=== PATIENT | female | born 1980 | race African-American/Black ===

== ENCOUNTER 2023-11-08 17:24 | Emergency (ER) | payer BC, MEDICAID ==
[~2023-11-08] VITALS: Ht 167.6 cm; Wt 100.0 kg
[2023-11-08 17:31] VITALS: BP 135/77; PULSE 81; RESP 18; TEMP 98.1; O2SAT 95
[2023-11-08] MEDS ORDERED: CEPH500C2 MT (18:17)
== END 2023-11-08 18:30 | disposition home or self-care (01) ==
LOC: ER 17:24
DX: L02.211 Cutaneous abscess of abdominal wall (principal)
CPT/HCPCS: 99283

== ENCOUNTER 2024-01-18 08:31 | Emergency (ER) | payer MEDICAID ==
[~2024-01-18] VITALS: Ht 167.6 cm; Wt 97.0 kg
[~2024-01-18 08:31] MED LIST: CEPH500C2 MT
[2024-01-18 08:36] VITALS: O2SAT 98
[2024-01-18] MEDS ORDERED: AZIT500T8 MT (09:15)
[2024-01-18] MEDS: LIDOCAINE HCL 1% 20ML VIAL INFIL ONE (10:14)
[2024-01-18] MEDS: CEFTRIAXONE SODIUM 500MG VIAL IM ONE (10:14)
[2024-01-18 10:23] VITALS: BP 130/80; PULSE 81; RESP 18; TEMP 98.7
== END 2024-01-18 10:20 | disposition home or self-care (01) ==
LOC: ER 08:31
DX: J02.9 Acute pharyngitis, unspecified (principal); A64 Unspecified sexually transmitted disease; Z98.890 Other specified postprocedural states
CPT/HCPCS: 99283; 81025; 87430; 96372; J0696; J3490

== ENCOUNTER 2024-02-10 21:51 | Emergency (ER) | payer MEDICAID ==
[~2024-02-10] VITALS: Ht 154.9 cm; Wt 114.0 kg
[~2024-02-10 21:51] MED LIST changes: +AZIT500T8 MT
[2024-02-10 22:22] VITALS: BP 134/79; PULSE 68; RESP 20; O2SAT 100
== END 2024-02-11 01:15 | disposition left against medical advice (07) ==
LOC: ER 21:51
DX: N89.8 Other specified noninflammatory disorders of vagina (principal); J02.9 Acute pharyngitis, unspecified
CPT/HCPCS: 99281